=== PATIENT | female | born 1985 | race African-American/Black ===

== ENCOUNTER 2018-11-11 22:59 | Emergency (ER) | payer OTHER ==
[2018-11-11 23:35] LABS: ABS Eosinophils 0.2 10^3/ul (0-0.6); ABS Lymphocytes 1.4 10^3/ul (1.0-4.8); ABS Monocytes 0.3 10^3/ul (0-0.8); ABS Neutrophils 1.8 10^3/ul (1.5-7.7); Eosinophil % 6.4 %; Hematocrit 40 % (35-47); Hemoglobin 13.6 g/dL (12.0-16.0); Lymphocyte % 38.3 %; Mean Corpuscular HGB Conc 34 g/dL (31-36); Mean Corpuscular Hemoglobin 32 pg (27-31); Mean Corpuscular Volume 93 fL (80-97); Mean Platelet Volume 7.5 fL (7.4-10.4); Platelet Count 253 10^3/uL (150-450); Red Blood Count 4.31 10^6 /uL (3.70-4.87); Red Cell Distribution Width 12 % (10-15); White Blood Count 3.8 10^3/uL (3.5-10.8)
--- NOTE | 2018-11-11 23:41 | ED ---
HPI Chest Pain - HPI Summary HPI Summary: 32 year old female presents with sudden onset chest pain today. States that it started after she had a conversation on her phone. She states that the pain got better after took some aspirin and talked it out with her mom. states only slight tightness in chest is left that is improving. pain was diffuse all over the chest. Never has this before. she admits occasional shortness of breath. No nausea and vomiting. No abdominal pain. No recent illness. No cough. She states she is feeling much since arrive here. denies a history of blood pressure or diabetes. No family history of cardiac disease. No recent travel. not on control. No pain or swelling of calf muscle - History of Current Complaint Chief Complaint: EDChestWallPain Time Seen by Provider: 11/11/18 23:14 Pain Intensity: 7 - Allergy/Home Medications Allergies/Adverse Reactions: Allergies Allergy/AdvReac Type Severity Reaction Status Date / Time No Known Allergies Allergy Verified 11/11/18 23:01 Home Medications: Home Medications NK [No Home Medications Reported] 11/11/18 [History Confirmed 11/11/18] PMH/Surg Hx/FS Hx/Imm Hx Endocrine/Hematology History: Denies: Hx Anticoagulant Therapy, Hx Diabetes Cardiovascular History: Denies: Hx Hypertension - Immunization History Immunizations Up to Date: Yes Infectious Disease History: No Infectious Disease History: Denies: Traveled Outside the [place] in Last 30 Days - Family History Known Family History: Negative: Cardiac Disease - Social History Alcohol Use: Occasionally Substance Use Type: Reports: None Smoking Status (MU): Never Smoked Tobacco Review of Systems Negative: Fever Positive: Chest Pain Positive: Shortness Of Breath. Negative: Cough Negative: Abdominal Pain All Other Systems Reviewed And Are Negative: Yes Physical Exam Triage Information Reviewed: Yes Vital Signs On Initial Exam: Initial Vitals Temp Pulse Resp BP Pulse Ox 98.3 F 94 18 129/91 100 11/11/18 23:00 11/11/18 23:00 11/11/18 23:00 11/11/18 23:00 11/11/18 23:00 Vital Signs Reviewed: Yes Appearance: Positive: Well-Appearing Skin: Positive: Warm, Dry Head/Face: Positive: Normal Head/Face Inspection Eyes: Positive: Normal, EOMI, EUGENIO, Conjunctiva Clear ENT: Positive: Normal ENT inspection, Pharynx normal, TMs normal Respiratory/Lung Sounds: Positive: Clear to Auscultation, Breath Sounds Present Cardiovascular: Positive: Normal, RRR Abdomen Description: Positive: Nontender, Soft Bowel Sounds: Positive: Present Musculoskeletal: Positive: Normal Neurological: Positive: Normal Psychiatric: Positive: Normal Diagnostics - Vital Signs Vital Signs Temp Pulse Resp BP Pulse Ox 11/11/18 23:19 73 11/11/18 23:00 98.3 F 94 18 129/91 100 - Laboratory Lab Results: Lab Results 11/11/18 Range/Units 23:29 WBC 3.8 (3.5-10.8) 10^3/uL RBC 4.31 (3.70-4.87) 10^6 /uL Hgb 13.6 (12.0-16.0) g/dL Hct 40 (35-47) % MCV 93 (80-97) fL MCH 32 H (27-31) pg MCHC 34 (31-36) g/dL RDW 12 (10-15) % Plt Count 253 (150-450) 10^3/uL MPV 7.5 (7.4-10.4) fL Neut % (Auto) 46.4 % Lymph % (Auto) 38.3 % Petroleum % (Auto) 8.2 % Eos % (Auto) 6.4 % Baso % (Auto) 0.7 % Absolute Neuts (auto) 1.8 (1.5-7.7) 10^3/ul Absolute Lymphs (auto) 1.4 (1.0-4.8) 10^3/ul Absolute Monos (auto) 0.3 (0-0.8) 10^3/ul Absolute Eos (auto) 0.2 (0-0.6) 10^3/ul Absolute Basos (auto) 0.0 (0-0.2) 10^3/ul Absolute Nucleated RBC 0.0 10^3/ul Nucleated RBC % 0.0 Result Diagrams: 11/11/18 23:29 11/11/18 23:29 Lab Statement: Any lab studies that have been ordered have been reviewed, and results considered in the medical decision making process. - Radiology chest Radiology Interpretation Completed By: ED Physician Summary of Radiographic Findings: no active disease - EKG No standard instances Cardiac Rate: NL EKG Rhythm: Sinus Rhythm Summary of EKG Findings: sinus rhythm Re-Evaluation - Re-Evaluation First Eval Re-Evaluation Time: 00:31 Change: Improved Comment: feels better, discussed results Second Eval Re-Evaluation Time: 00:43 Comment: patient declined second troponin Chest Pain Course/Dx - Course Course Of Treatment: 32 year old female presents with sudden onset chest pain today. States that it started after she had a conversation on her phone. She states that the pain got better after took some aspirin and talked it out with her mom. states only slight tightness in chest is left that is improving. pain was diffuse all over the chest. Never has this before. she admits occasional shortness of breath. No nausea and vomiting. No abdominal pain. No recent illness. No cough. She states she is feeling much since arrive here. denies a history of blood pressure or diabetes. No family history of cardiac disease. No recent travel. not on control. No pain or swelling of calf muscle On exam lungs clear to auscultation. Heart regular rate and rhythm. EKG shows sinus rhythm. wbc normal. d-dimer neg. troponin zero. chest xray read by me as normal. discussed like anxiety reaction as occurred after phone conversation. patient has no risk factor for ACS. patient declined second troponin. discussed should follow up with primary. patient understand and agrees with plan. - Chest Pain Differential Diagnosis/HQI/PQRI: Angina, Chest Wall, Pulmonary Embolism - Diagnoses Provider Diagnoses: Atypical chest pain Discharge - Sign-Out/Discharge Documenting (check all that apply): Patient Departure Patient Received Moderate/Deep Sedation with Procedure: No - Discharge Plan Condition: Good Disposition: HOME Patient Education Materials: Noncardiac Chest Pain (ED) Referrals: [facility] - Jose PERES [Z.BUSINESS, APPLICATION, OTHER] - Additional Instructions: take Tylenol or ibuprofen every 6 hours as needed for pain follow up with Jose if no improvement Return to ED if develop any new or worsening symptoms - Billing Disposition and Condition Condition: GOOD Disposition: Home
[2018-11-11 23:54] LABS: ALT 25 U/L (7-52); AST 22 U/L (13-39); Albumin 4.4 g/dL (3.2-5.2); Albumin/Globulin Ratio 1.7 (1-3); Alkaline Phosphatase 34 U/L (34-104); Anion Gap 6 mmol/L (2-11); Blood Urea Nitrogen 10 mg/dL (6-24); C Reactive Protein < 1.00 mg/L (<8.01); CO2 Carbon Dioxide 27 mmol/L (22-32); Calcium 9.6 mg/dL (8.6-10.3); Chloride 105 mmol/L (101-111); EGFR African American 104.5 (>60); EGFR Non-African American 86.3 (>60); Globulin 2.6 g/dL (2-4); Glucose 98 mg/dL (70-100); Potassium 3.7 mmol/L (3.5-5.0); Sodium 138 mmol/L (135-145)
[2018-11-12 00:01] LABS: HCG Pregnancy < 0.60 mIU/mL
[2018-11-12 00:29] VITALS: BP 105/76
== END 2018-11-12 00:47 | disposition home or self-care (01) ==
LOC: ED 22:59
DX: R07.89 Other chest pain (principal); R06.02 Shortness of breath
CPT/HCPCS: 36415; 71045; 80053; 83605; 84484; 84702; 85025; 85379; 86140; 93005; 99283